=== PATIENT | female | born 1970 | race Caucasian/White ===

== ENCOUNTER 2021-09-24 08:29 | Emergency (ER) | payer OTHER, MEDICARE ==
[~2021-09-24] VITALS: Ht 160 cm; Wt 72.6 kg
[2021-09-24 08:31] VITALS: BP 130/78
[2021-09-24 08:35] VITALS: BP 145/96
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
--- NOTE | 2021-09-24 09:03 | DIREP ---
PROCEDURE:XRAY PELVIS 1-2 VWS COMPARISON:None. INDICATIONS:trauma FINDINGS: BONES:No acute fracture. JOINTS:No significant degenerative changes of the hips. Apparent labral calcifications. SOFT TISSUES:No suspicious abnormality. OTHER:Degenerative changes of the imaged lower lumbar spine. CONCLUSION: 1. No acute osseous abnormality. 2. Labral calcifications without significant degenerative changes of the hips. 3. Degenerative changes of the imaged lower lumbar spine. Dictated by: Drake Hatfield M.D. On 09/24/2021 at 08:59 AM
--- NOTE | 2021-09-24 09:05 | DIREP ---
PROCEDURE:CT CERVICAL SPINE WITHOUT CONTRAST TECHNIQUE:Axial cuts were obtained through the cervical spine. The images were viewed at bone and soft tissue settings. Sagittal and coronal reconstructions are provided. COMPARISON:None. INDICATIONS:trauma FINDINGS: ALIGNMENT:Normal. VERTEBRAE:No visible fracture. PARASPINAL AREA:Normal. OTHER:No additional findings. CERVICAL DISC LEVELS C2-C3:Minimal left and severe right facet arthropathy. No significant foraminal or spinal stenosis. C3-C4:Mild bilateral facet arthropathy and uncovertebral arthropathy. Moderate bilateral foraminal stenosis. No spinal stenosis. C4-C5:Large central protrusion mildly compresses the cord. Limited by CT modality. Consider follow-up MRI without contrast if needed. Mild disc space height loss. No foraminal stenosis. Mild uncovertebral arthropathy. C5-C6:Disc space height loss. Prominent uncovertebral arthropathy. Dorsal disc osteophyte complex appears to contact the cord. Severe bilateral foraminal stenosis. C6-C7:Disc space height loss. Severe left and moderate right uncovertebral arthropathy with severe left and moderate right foraminal stenosis. Small dorsal disc osteophyte complex with mild canal stenosis. C7-T1:Mild left facet arthropathy. No significant foraminal or spinal stenosis. CONCLUSION: 1. Multilevel degenerative changes as detailed above most severe at C4-5 with cord compression, C5-6 with cord contact. See above for additional degenerative changes. Dictated by: Tono Urbina M.D. on 09/24/2021 at 08:58 AM
[2021-09-24 09:34] VITALS: BP 138/88
== END 2021-09-24 09:30 | disposition home or self-care (01) ==
LOC: ER 08:29
DX: S16.1XXA Strain of muscle, fascia and tendon at neck level, initial encounter (principal); M79.602 Pain in left arm; M79.605 Pain in left leg; V43.52XA Car driver injured in collision with other type car in traffic accident, initial encounter; Y93.89 Activity, other specified; Y92.89 Other specified places as the place of occurrence of the external cause; Y99.8 Other external cause status
CPT/HCPCS: 72125; 72170; 99284

== ENCOUNTER 2022-11-15 10:40 | Emergency (ER) | payer MEDICARE, OTHER ==
[~2022-11-15] VITALS: Ht 154.9 cm; Wt 65.8 kg
--- NOTE | 2022-11-15 10:41 | NUR ---
ARRIVAL PT ARRIVED VIA EMS TO ED 2 WITH C/O A SEIZURE THAT LASTED 2 MIN WITNESSED AND HAD A GCS OF 13 WITH EMS. EMS INITIATED 2 IVS AND FLUIDS. PT HIT HER HEAD. PT STATED SHE MISSED A COUPLE DOSES OF HER SEIZURE MEDS. PT TRANSFERRED FROM [facility] TO BED. VITALS TAKEN AND NOTIFIED.
[2022-11-15] MEDS ORDERED: TRIPLE ANTIBIOTIC OINTMENT TP ONE (10:55)
[2022-11-15 11:02] VITALS: BP 143/86
[2022-11-15] MEDS ORDERED: KEPPRA 100 ML IV STA (11:02)
[2022-11-15] MEDS ORDERED: KEPPRA 100 ML IV ONE (11:02)
--- NOTE | 2022-11-15 11:20 | DIREP ---
PROCEDURE:CT HEAD WITHOUT CONTRAST TECHNIQUE:Axial cuts were obtained through the head, without intravenous contrast material. The images were viewed at brain and bone settings. COMPARISON:None. INDICATIONS:Seizure and head injury FINDINGS: VENTRICLES:Normal. CEREBRUM:Normal. No intracranial hemorrhage, large territory infarct or space-occupying mass. CEREBELLUM:Normal. BRAINSTEM:Normal. SKULL:Normal. SINUSES:Clear. OTHER:None CONCLUSION:No acute intracranial abnormality or skull fracture. Dictated by: Faith Falcon MD on 11/15/2022 at 11:17 AM
[2022-11-15 11:32] LABS: MEAN CORP HGB 30.4 pg (26-34); RED CELL DISTRIBUTION WIDTH 12.1 % (11.5-14.5)
--- NOTE | 2022-11-15 11:35 | DIREP ---
PROCEDURE: CT SPINE CERVICAL W/O COMPARISON:[facility], CT, CT SPINE CERVICAL W/O, 09/24/2021, 08:45 AM. INDICATIONS:Injury FINDINGS: ALIGNMENT:Normal. VERTEBRAE:Normal vertebral height. Moderate anterior osteophyte formation. PARASPINAL AREA:Normal. OTHER:No additional findings. CERVICAL DISC LEVELS C2-C3:Moderate bilateral facet arthrosis. C3-C4:Moderate bilateral facet arthrosis. C4-C5:Moderate bilateral facet arthrosis. Broad-based posterior disc osteophyte complex. Moderate left and mild right neural foraminal narrowing. C5-C6:Moderate left and mild right facet arthrosis. Broad-based posterior disc osteophyte complex. Severe left and moderate right neural foraminal narrowing. C6-C7:Mild bilateral facet arthrosis. Moderate left neural foraminal narrowing. C7-T1:Mild bilateral facet arthrosis. CONCLUSION:Multilevel degenerative and discogenic changes without acute bony abnormality. Moderate left and mild right neural foramina narrowing at C4-5, severe left and moderate right neural foramina narrowing at C5-6, moderate left neural foramina narrowing at C6-7. Dictated by: Maria M Ames M.D. on 11/15/2022 at 11:32 AM
--- NOTE | 2022-11-15 11:50 | ER.PDOC ---
General Chief Complaint: Seizure Stated Complaint: SEIZURE Time seen by MD: 11:47 Source: patient Exam Limitations: no limitations History of Present Illness Initial Comments Seizure this morning. Patient is on Lamictal and missed taking a couple of doses. She hit her head and sustained a laceration of the right frontal scalp. Timing/Onset/Duration: Single Episode Preceding Symptoms/Context: missed dose of medication Character Of Seizures: unknown Motor Activity: shaking all over Injury: head Allergies: Coded Allergies: No Known Allergies (Unverified , 09/24/21) Past Medical History Medical History: hypertension, other Surgical History: hysterectomy, tonsillectomy Family History Significant Family History: no pertinent family hx Social History Smoking: non-smoker Alcohol Use: none Drug Use: none Constitutional: no symptoms reported EENTM: no symptoms reported Respiratory: no symptoms reported Cardiovascular: no symptoms reported Gastrointestinal: no symptoms reported Skin: see HPI All Other Systems: Reviewed and Negative Physical Exam General Appearance: alert, no distress EENT: nml eye inspection, PERRL, no nystagmus, nml ENT inspection, no apparent, pharynx nml, no CSF leak Neck/Back: neck supple, non-tender Respiratory: no resp distress, breath sounds nml, no evidence of rib injury CVS: reg rate & rhythm, heart sounds nml Abdomen: non-tender, no organomegaly, no distention Extremities: non-tender, nml ROM, no pedal edema Neuro/Psych: oriented x 3, speech nml, mood/affect nml Sensorimotor: no motor deficit, no sensory deficit, reflexes nml Comments Laceration right frontal scalp with skin loss. Results/Orders Results/Orders Orders - JUSTYNA MOSS MD Levetiracetam 500mg/100 Nacl (Keppra) (11/15/22 11:02) Levetiracetam 500mg/100 Nacl (Keppra) (11/15/22 11:02) Ct Head Wo Contrast (11/15/22 11:02) Ct Cervical Spine (11/15/22 11:02) Cbc W/O Diff (11/15/22 11:02) Comprehensive Metabolic Panel (11/15/22 11:02) Vital Signs Date Time Temp Pulse Resp B/P (MAP) Pulse Ox O2 Delivery O2 Flow Rate FiO2 11/15/22 12:12 98.5 92 18 105/70 (82) 96 Room Air* 0 21 11/15/22 11:02 98.5 136 18 143/86 (105) 96 Room Air* 0 21 11/15/22 11:02 98.5 136 18 96 11/15/22 11:02 98.5 136 18 Laboratory Tests Test 11/15/22 11:26 White Blood Count 8.9 10^3/uL (4.5-11.0) Red Blood Count 5.30 10^6/uL (4.00-5.20) H Hemoglobin 16.1 g/dL (12.0-15.0) H Hematocrit 48.6 % (36.0-46.0) H Mean Corpuscular Volume 91.7 fL (78-100) Mean Corpuscular Hemoglobin 30.4 pg (26-34) Mean Corpuscular Hemoglobin Concent 33.1 g/dL (33-36.5) Red Cell Distribution Width 12.1 % (11.5-14.5) Platelet Count 307 10^3/uL (150-400) Mean Platelet Volume 9.8 fL (7.8-11.0) Sodium Level 138 mmol/L (132-145) Potassium Level 3.4 mmol/L (3.6-5.2) L Chloride Level 103.0 mmol/L (96-109) Carbon Dioxide Level 21.5 mmol/L (20.0-32) Anion Gap 16.9 Blood Urea Nitrogen 14 mg/dL (7-18) Creatinine 0.89 mg/dL (0.59-1.40) Estimated GFR () 80.3 (>/=60) Est GFR (CKD-EPI)(Non-Afr Danish) 66.3 (>/=60) BUN/Creatinine Ratio 15.0 Glucose Level 187 mg/dL (70-110) H Calcium Level 9.4 mg/dL (8.4-10.5) Total Bilirubin 0.4 mg/dL (0.2-1.0) Aspartate Amino Transferase (AST) 36 U/L (0-35) H Alanine Aminotransferase (ALT) 30 U/L (12-78) Alkaline Phosphatase 75 U/L (50-136) Total Protein 6.7 g/dL (6.4-8.2) Albumin 3.9 g/dL (3.4-5.0) Globulin 2.8 Albumin/Globulin Ratio 1.[address] head show no acute abnormality. CT C-spine show no fracture. Chemistry show glucose of 187 and potassium of 3.4. Rest of chemistry is unremarkable. White count is normal. Patient told me that she received a tetanus shot 2 years ago. Patient received Keppra and has not had seizure in the emergency room. She is stable and feels good to go home. Head wound cleaned and dressed. There is loss of skin and so wound cannot be sutured. ER DEPART Departure Time of Disposition: 12:18 Disposition: 01 HOME / SELF CARE / HOMELESS Impression: Primary Impression: Seizure Additional Impressions: Head injury, acute Non compliance w medication regimen Condition: Improved Referrals: PCP,UNKNOWN (PCP) PRIMARY CARE PROVIDER Additional Instructions: Keflex Clean wound daily with soap and water and apply Neosporin Take your seizure seizure medication as prescribed. Be compliant in taking your medications. Do not skip any doses of your medication Follow-up with your PCP in 2 to 3 days Return to ED if worse or concerns Duration or Time Spent with Pa: 30 min Problem Qualifiers Additional Impressions: Head injury, acute Encounter type: initial encounter Qualified Codes: S09.90XA - Unspecified injury of head, initial encounter JUSTYNA MOSS MD Nov 15, 2022 11:50
[2022-11-15 12:00] LABS: CARBON DIOXIDE 21.5 mmol/L (20.0-32)
[2022-11-15 12:12] VITALS: BP 105/70
== END 2022-11-15 12:28 | disposition home or self-care (01) ==
LOC: ER 10:40 → EDBD 10:40 → ER 12:28
DX: S09.90XA Unspecified injury of head, initial encounter (principal); R56.9 Unspecified convulsions; I10 Essential (primary) hypertension; Z91.14 Patient's other noncompliance with medication regimen; Z90.710 Acquired absence of both cervix and uterus; Z90.89 Acquired absence of other organs; X58.XXXA Exposure to other specified factors, initial encounter; Y93.89 Activity, other specified; Y92.89 Other specified places as the place of occurrence of the external cause; Y99.8 Other external cause status
CPT/HCPCS: 36415; 70450; 72125; 80053; 85027; 96365; 99284; J1953